=== PATIENT | male | born 1960 | race Caucasian/White ===

== ENCOUNTER 2018-11-25 09:58 | Inpatient (IN) ==
--- NOTE | 2018-11-11 16:09 | PAT Medication Instructions ---
Medication Instructions Date of Service November 11, 2018 Home Medications calcium carbonate-vitamin D3 [Calcium 500 + D] 1 tab PO QPM ibuprofen 400 mg PO QID PRN lisinopril 10 mg PO QAM multivitamin 1 tab PO QPM ASK your surgeon for instructions ibuprofen 400 mg PO QID PRN DO NOT take the morning of surgery lisinopril 10 mg PO QAM Take evening before surgery calcium carbonate-vitamin D3 [Calcium 500 + D] 1 tab PO QPM multivitamin 1 tab PO QPM Other Notes If you have any questions please call us at [phone] or [phone] or [phone] or [phone]
--- NOTE | 2018-11-12 10:07 | Anesthesiology Consultation ---
Date of Service November 12, 2018 Assessment & Plan (1) Encounter for pre-operative examination: Chart Review Chart Review: Pending: Refer to Additional Notes / Consult section (pending preop testing (labs, EKG, CXR)) and Patient seen in Pre Admission Testing Teaching & Discussion Pre-Anesthesia Teaching/Discussion Notes: Instructed NPO after midnight before surgery,except medications with 15 cc of water. Medication instructions prov ided according to the PAT guidelines. History Surgery Operation Date: 11/25/18 12:45 Proposed Procedures p L3-L4 Transforaminal Lumbar Interbody Fusion, - Gage Oconnell DO s L4-L5 Hardware Removal with Spinal Cord Monitoring - Gage Oconnell DO Height/Weight Height: 6 ft Weight: 119.3 kg Allergies Allergy/AdvReac Type Severity Reaction Status Date / Time No Known Allergies Allergy Unknown Verified 11/06/18 11:33 Medications Home Medications Medication Instructions Recorded Confirmed Last Taken calcium carbonate-vitamin D3 1 tab PO QPM 11/06/18 11/06/18 Unknown [Calcium 500 + D] ibuprofen 400 mg PO QID PRN 11/06/18 11/06/18 Unknown lisinopril 10 mg PO QAM 11/06/18 11/06/18 Unknown multivitamin 1 tab PO QPM 11/06/18 11/06/18 Unknown Past Medical History Medical History Arthritis History of blood transfusion post-op Hypertension Kidney stones Obesity Sleep apnea CPAP Exercise / Class Metabolic Activity II 4-5 Yardwork/Stairs/Walk up hill Past Surgical History Surgical History Fusion of spine X 2-LOWER BACK AND NECK H/O cystoscopy FOR KIDNEY STONES H/O sinus surgery X MULTIPLE History of herniorrhaphy Past Anesthesia History No Hx of Anesthesia Complications (except PONV x 1 ) and No Family Hx of Anesthesia Complications History of PONV History of PONV (x1 episode) Social History Smoking Status: Former smoker Do You Dip or Chew Tobacco: No Smoking End Date: QUIT 21 YRS AGO Hx Alcohol Use: Yes Alcohol type: beer alcohol intake frequency: a few times a month Hx Substance Use: No Review of Systems Patient denies chest pain, shortness of breath, dyspnea on exertion, reflux, cough, wheezing, palpitations. Physical Exam Vital Signs VITALS BP 119/72 P 65 TEMP 98.3 SP02 93%RA RESP 16 PHYSICAL Full neck and c-spine range of motion. Full TMJ range of motion. TMD 3 finger breaths Mallampati Score 2 Dentition: full upper/lower dentures; edentulous Lungs: clear throughout to auscultation Cardiac: regular rate and rhythm, no murmurs noted Spine: normal Carotid arteries: negative bruit Extremities: no edema
--- NOTE | 2018-11-12 11:09 | XRay Report ---
TWO VIEW CHEST CLINICAL HISTORY: Preoperative examination. FINDINGS: PA and lateral chest radiographs are compared to study dated 11/22/2008. The heart is top no rmal for projection. The pulmonary vasculature is noncongested. The lungs appear hyperinflated. Chron ic interstitial thickening is similar to previous. There is mild bibasilar atelectasis. No airspace c onsolidation or pleural effusion is identified. There are scattered calcified granulomas. There is no pneumothorax. The skeletal structures are osteopenic. The bony thorax appears intact. Degenerative c hanges noted in the shoulders and thoracic spine. Fusion hardware is seen in the lower cervical spine . IMPRESSION: No active disease in the chest. Electronically signed by: Aftab Doran M.D. 11/12/2018 11:08 AM
[2018-11-12 11:18] LABS: Basophils # (auto) 0.02 K/uL (0-0.2); Basophils % (auto) 0.4 %; Eosinophils % (auto) 1.9 %; Hemoglobin 14.7 g/dL (14.0-18.0); Immature Granulocytes # (auto) 0.01 K/uL (0.00-0.02); Immature Granulocytes % (auto) 0.2 %; Lymphocytes # (auto) 1.68 K/uL (1.2-3.4); Lymphocytes % (auto) 32.1 %; Mean Corpuscular Hemoglobin 32.7 pg (25-34); Mean Corpuscular Volume 93.3 fL (80-100); Mean Platelet Volume 9.8 fL (7.4-10.4); Monocytes # (auto) 0.47 K/uL (0.11-0.59); Neutrophils # (auto) 2.95 K/uL (1.4-6.5); Neutrophils % (auto) 56.4 %; Platelet Count 222 K/uL (130-400); RDW Coefficient of Variation 12.7 % (11.5-14.5); RDW Standard Deviation 43.1 fL (36.4-46.3); White Blood Count 5.23 K/uL (4.8-10.8)
[2018-11-12 11:26] LABS: BUN Creatinine Ratio 27.1 (10-20); Calcium 9.3 mg/dl (8.5-10.1); Creatinine Clr Calc Pharmacy 147.3 ml/min; Est GFR (African American) 118.3; Est GFR (Non-African American) 102.1; Potassium 4.5 mmol/L (3.5-5.1)
[2018-11-12 12:12] LABS: Appearance Urine Cloudy (Clear); Bacteria Urine Automated Negative (Negative); Bilirubin Urine Negative (Negative); Blood Urine 2+ (Negative); Color Urine Yellow; Glucose Urine UA Negative (Negative); Ketones Urine Negative (Negative); Leukocyte Esterase Urine Negative (Negative); Nitrite Urine Negative (Negative); Protein Urine Negative (Negative); RBC Urine Automated >30 /hpf (0-4); Specific Gravity Urine 1.017 (1.000-1.030); Urobilinogen Urine Negative (Negative)
[~2018-11-25 09:58] MED LIST: ACETAMINOPHEN 500 MG TAB PO SCH; CEFAZOLIN 2000MG 2,000 MG/15 ML SYR IV SCH; CeleBREX 200 MG CAP PO SCH; GABAPENTIN 600 MG DOSE PO SCH; LR 15ML/HR IV SCH
[2018-11-25] MEDS ORDERED: ePHEDrine sulfate 50 MG/ML AMP IV PRN (10:54)
[2018-11-25] MEDS ORDERED: ATROPINE SULFATE 0.1 MG/ML 10ML SYR IV PRN (10:54)
[2018-11-25] MEDS ORDERED: ONDANSETRON INJ 2 MG/ML 2 ML VIAL IV PRN ×2 (10:54→16:32)
[2018-11-25] MEDS ORDERED: fentaNYL citrate 100 MCG/2 ML VIAL IV PRN (10:54)
[2018-11-25] MEDS ORDERED: MIDAZOLAM HCL 1 MG/ML 2ML VIAL ONE (11:38)
[2018-11-25] MEDS ORDERED: fentaNYL citrate 100 MCG/2 ML VIAL ONE ×5 (11:38→13:58)
[2018-11-25] MEDS ORDERED: NEOSTIGMINE METHYLSULFATE 1 MG/ML 10ML VIAL ONE (11:43)
[2018-11-25] MEDS ORDERED: ROCURONIUM BROMIDE 10 MG/ML 5 ML VIAL ONE (11:43)
[2018-11-25] MEDS ORDERED: GLYCOPYRROLATE 0.2 MG/ML VIAL ONE (11:43)
[2018-11-25] MEDS ORDERED: PROPOFOL IV EMULSION 10 MG/ML 20 ML VIAL IV ONE (11:43)
[2018-11-25] MEDS ORDERED: DEXAMETHASONE SOD INJ 4 MG/ML VIAL ONE (11:43)
[2018-11-25] MEDS ORDERED: ONDANSETRON INJ 2 MG/ML 2 ML VIAL ONE (11:43)
[2018-11-25] MEDS ORDERED: LIDOCAINE HCL 2% 2 ML VIAL/AMP(20MG/ML) INFIL ONE (11:43)
--- NOTE | 2018-11-25 11:49 | History & Physical Bridge Note ---
Date of Service November 25, 2018 History & Physical Bridge Note I have examined the patient, reviewed the History & Physical and in the interval since the performance of the History & Physical I have noted the following changes of clinical significance: no changes noted
--- NOTE | 2018-11-25 11:50 | History & Physical Report ---
Date of Service November 25, 2018 Assessment & Plan (1) Spinal stenosis, lumbar region with neurogenic claudication: Transforaminal lumbar interbody fusion L3-L4 with hardware removal L4-L5 Present on Admission?: Yes History of Present Illness Chief Complaint: Back and leg pain Primary Care Provider: Alejandra Mendez This is a 58-year-old male well-known to me that presents with chronic persistent back and leg pain. After failing extensive course of nonoperative care is here for surgical intervention. Allergies Allergy/AdvReac Type Severity Reaction Status Date / Time No Known Allergies Allergy Unknown Verified 11/06/18 11:33 Home Medications Home Medications Medication Instructions Recorded Confirmed Type calcium carbonate-vitamin D3 1 tab PO QPM 11/06/18 11/25/18 History [Calcium 500 + D] ibuprofen 400 mg PO QID PRN 11/06/18 11/25/18 History lisinopril 10 mg PO QAM 11/06/18 11/25/18 History multivitamin 1 tab PO QPM 11/06/18 11/25/18 History Past Med/Surg History Medical History Vasectomy planned (Acute) Arthritis Hypertension Kidney stones Sleep apnea CPAP History of blood transfusion post-op Obesity Surgical History Fusion of spine X 2-LOWER BACK AND NECK H/O cystoscopy FOR KIDNEY STONES H/O sinus surgery X MULTIPLE History of herniorrhaphy Social History Preferred Language: Upper Sorbian Communication Ability: Effective Timber Trimmer Required: No Beliefs That Will Affect Care: None Current Living Situation: Significant Other Other Information That Helps Us Care for You: No Feels Safe at Home: Yes Safety Concerns: Feels Safe At This Time Smoking Status: Former smoker Do You Dip or Chew Tobacco: No ; Smoking End Date: QUIT 21 YRS AGO ; Second Hand Exposure: Yes (TARA SMOKES) ; Hx Alcohol Use: Yes Alcohol type: beer Hx Substance Use: No Physical Exam Physical Exam: Patient is alert and oriented neurologically intact. Results & Data Vital Signs (Past 12 Hours) Vital Signs Temp Pulse Resp BP Pulse Ox 11/25/18 10:31 36.8 C 70 22 126/76 94
[2018-11-25] MEDS ORDERED: BACITRACIN INJ 50,000 UNIT VIAL ONE (12:11)
[2018-11-25] MEDS ORDERED: BUPIVACAINE/EPINEPHRINE 0.5% MPF 1:200,000 30 ML VIAL ONE (12:11)
[2018-11-25] MEDS ORDERED: HYDROmorphone INJ 2 MG/ML SYR/VIAL ONE (12:14)
[2018-11-25] MEDS ORDERED: ePHEDrine sulfate 50 MG/ML SYR ONE (13:06)
[2018-11-25] MEDS ORDERED: FLOSEAL HEMOSTATIC MATRIX 10ML TOP ONE (14:27)
--- NOTE | 2018-11-25 14:37 | Operative Report ---
Post Operative Report Pre & Post Diagnosis Operation Date: 11/25/18 11:55 Pre-Op Diagnosis: Spinal stenosis, lumbar region with neurogenic claudication Post-Op Diagnosis: Spinal stenosis, lumbar region with neurogenic claudication Procedure Operation Date: 11/25/18 11:55 Actual Procedures #1 removal of posterior instrumentation L4-5. #2 expiration of fusion L4-5. #3 lumbar decompression with bilateral medial facetectomies and foraminotomies L2-3 L3-4. #4 posterior spinal fusion L3-4. #5 placement posterior instrumentation L3-4 per #6 interbody fusion L3-4. #7 placement of peek cage 13 x 26 mm at L5 4. #8 placement of local autograft in the posterior lateral gutters per #9 placement infuse collagen sponge, master graft in the posterior lateral gutters ostial amp and interbody space. Surgeon Gage Oconnell, Manager Finance Kasie Bear Estimated Blood Loss 750 Findings See Below Patient is 6 foot tall weighing over 118 kg with a BMI in excess of 35. This combined with an EBL of 750 cc created significant technical difficulty throughout the procedure at at least 50% increase in operative time. Required her deepest retractors and longest instruments to perform the procedure. Specimens None Indications This is a 58-year-old male well-known to the presents with the above-mentioned diagnosis after failing extensive course of nonoperative care like to undergo the above-mentioned procedure. Description of Procedure Patient was met with identified and informed consent obtained. Patient was then taken to the operative suite underwent intubation placed in the prone position the Jd table on top of the Darwin frame. All bony prominences well-padded eyes inspected to ensure no external pressure placed upon the peer at this point the lumbar spine was prepped and draped in normal sterile fashion. Sharp dissection with the assistance of Bovie cautery was performed down to and exposing the lamina and transverse processes of L3 and instrumentation at L4 and L5 bilaterally. Then proceed remove the hardware bilaterally at L4 and L5 explored the fusion mass noting it to be intact. Then performed a complete laminectomy of L3 partial laminectomy of L2 including bilateral medial facetectomies and foraminotomies addressing severe spinal stenosis. Pedicle screws were then placed in L3 and L4 bilaterally with assistance of fluoroscopy the purposes whitney placed. By way of a transforaminal approach on the right complete discectomy was performed endplates curetted to subcortical bleeding bone and a 13 x 26 mm peek cage filled with ostium bone graft was tapped into position. The rods were then locked in final position bilaterally. The transverse processes of L3 and L4 burred to subcortical bleeding bone. Infuse collagen sponge master graft local autograft placed in the posterior lateral gutters. 15 round KRISTINA drain inserted. The incision was then closed with 1 Vicryl in the fascia 2-0 Vicryl substantially and 4 Monocryl for final skin closure. Steri-Strip sterile dressings placed. Patient will continue PACU stable condition. Please note Kasie Bear present throughout the entire procedure involved the patient positioning complex portions of the surgery and final skin closure. Lastly spinal cord monitoring was utilized that the proce dure and no changes noted. I attest to the content of the Intraoperative Record and any orders documented therein. Any exceptions are noted below.
[2018-11-25 14:38] LABS: Hematocrit (blood only) 36.1 % (42-52)
[2018-11-25] MEDS ORDERED: KETOROLAC 30 MG/ML VIAL ONE (14:43)
[2018-11-25] MEDS ORDERED: VOLUVEN IN NSS IV ONE (14:43)
--- NOTE | 2018-11-25 14:53 | Fluoroscopy Report ---
INTRAOPERATIVE RADIOGRAPHS CLINICAL HISTORY: Hardware removal. L3-L5 spinal fusion. Fluoroscopy time: 9 seconds. FINDINGS: 2 spot fluoroscopic views of the lumbar spine are presented. There has been discectomy at L 3-L4 and L4-L5 with laminectomy and posterior fusion. Interpedicular screws are present at L3-L4. The orthopedic hardware appears intact. IMPRESSION: Intraoperative images from lumbar spinal fusion as above. Electronically signed by: Aftab Doran M.D. 11/25/2018 2:52 PM
--- NOTE | 2018-11-25 15:47 | Anesthesiology Progress Note ---
Date of Service November 25, 2018 Anesthesia Post Procedure Vital Signs Vital Signs: Temp Pulse Pulse Resp BP Pulse Ox 11/25/18 15:30 71 14 143/83 H 95 11/25/18 15:20 70 12 136/80 97 11/25/18 15:10 71 12 141/80 H 99 11/25/18 15:00 75 12 148/88 H 97 11/25/18 14:54 36.2 C L 81 12 136/98 93 11/25/18 10:31 36.8 C 70 22 126/76 94 Pain Intensity Lower Back: Pain Intensity: 3 Transfer of Care Handoff Completed per policy Notes Mental Status: alert / awake / arousable Patient Amnestic to Procedure: Yes Nausea / Vomiting: adequately controlled Pain: adequately controlled Airway Patency, RR, SpO2: stable & adequate BP & HR: stable & adequate Hydration State: stable & adequate Anesthetic Complications: no major complications apparent Notes: pt c/o OS gritty ,painful sensation w/o visual acuity changes. I cannot discern any obvious injury upon examination. I will order erythromycin ophthalmic ointment TID x 5 days. Will start constantino. I have discussed this with him and he understands.
[2018-11-25] MEDS: ERYTHROMYCIN OP OINT 5 MG/GM 3.5 GM TUBE OPL SCH ×2 (16:04→20:48)
[2018-11-25] MEDS ORDERED: DO NOT ADMINISTER FLU VACCINE PRN (16:32)
[2018-11-25] MEDS ORDERED: METOCLOPRAMIDE HCL INJ 5 MG/ML 2 ML VIAL IV PRN (16:32)
[2018-11-25] MEDS ORDERED: ALUMINUM/MAGNESIUM SUSP 30 ML UDC PO PRN (16:32)
[2018-11-25] MEDS ORDERED: bisacodyL 10 MG SUPP PR PRN (16:32)
[2018-11-25] MEDS ORDERED: NALOXONE HCL 0.4 MG/1 ML VIAL/CARP IV PRN (16:32)
[2018-11-25] MEDS ORDERED: ONDANSETRON 4 MG TAB PO PRN (16:32)
[2018-11-25] MEDS ORDERED: LORazepam 0.5 MG TAB PO PRN (16:32)
[2018-11-25] MEDS ORDERED: LORazepam 0.5 MG/1 ML VIAL IV PRN (16:32)
[2018-11-25] MEDS ORDERED: SOD PHOSPHATE/SOD BIPHOSPHATE ENEMA 132 ML BTL PR PRN (16:32)
[2018-11-25] MEDS ORDERED: HYDROmorphone INJ 0.5 MG/0.5 ML SYR IV PRN (16:32)
[2018-11-25] MEDS ORDERED: PROMETHAZINE HCL 12.5 MG in SODIUM CHLORIDE 0.9% 50 ML IV PRN (16:32)
[2018-11-25] MEDS ORDERED: ACETAMINOPHEN 1,000 MG/100 ML VIAL IV PRN (16:32)
[2018-11-25] MEDS ORDERED: ACETAMINOPHEN 500 MG TAB PO PRN (16:32)
[2018-11-25] MEDS ORDERED: OXYCODONE HCL IR 5 MG TAB (IMMEDIATE RELEASE) PO PRN (16:32)
[2018-11-25] MEDS ORDERED: MAGNESIUM HYDROXIDE SUSP 30 ML UDC PO PRN (16:32)
[2018-11-25] MEDS ORDERED: DO NOT ADMINISTER PNEUMOCOCCAL VACCINE PRN (16:32)
[2018-11-25] MEDS ORDERED: FAMOTIDINE 20 MG TAB PO PRN (16:32)
[2018-11-25] MEDS ORDERED: OXYCODONE HCL IR 5 MG TAB (IMMEDIATE RELEASE) ONE (16:39)
[2018-11-25] MEDS: CEFAZOLIN 2000MG 2,000 MG/15 ML SYR IV SCH (20:47)
[2018-11-25] MEDS: CALCIUM 600MG + VIT D 400 IU TAB PO SCH (20:47)
[2018-11-25] MEDS: MULTIVITAMIN TAB PO SCH (20:47)
[2018-11-25] MEDS: DOCUSATE SODIUM/SENNA 50/8.6MG TAB PO SCH (20:47)
[2018-11-25] MEDS: LACTATED RINGER'S 1,000 ML IV SCH (20:48)
[2018-11-26] MEDS: LACTATED RINGER'S 1,000 ML IV SCH (00:07)
[2018-11-26] MEDS: KETOROLAC 30 MG/ML VIAL IV SCH ×4 (00:07→18:04)
[2018-11-26] MEDS: POLYETHYLENE (MIRALAX) 17 GM PACK PO SCH ×4 (05:10→23:51)
[2018-11-26] MEDS: CEFAZOLIN 2000MG 2,000 MG/15 ML SYR IV SCH (05:10)
[2018-11-26 06:44] LABS: Basophils # (auto) 0.01 K/uL (0-0.2); Basophils % (auto) 0.1 %; Eosinophils # (auto) 0.04 K/uL (0-0.5); Eosinophils % (auto) 0.4 %; Hematocrit (blood only) 32.6 % (42-52); Hemoglobin 11.5 g/dL (14.0-18.0); Immature Granulocytes # (auto) 0.03 K/uL (0.00-0.02); Immature Granulocytes % (auto) 0.3 %; Lymphocytes # (auto) 1.15 K/uL (1.2-3.4); Lymphocytes % (auto) 11.2 %; Mean Corpuscular Hemoglobin 32.3 pg (25-34); Mean Corpuscular Hgb Conc 35.3 g/dL (32-36); Mean Corpuscular Volume 91.6 fL (80-100); Mean Platelet Volume 9.3 fL (7.4-10.4); Monocytes # (auto) 0.95 K/uL (0.11-0.59); Monocytes % (auto) 9.3 %; Neutrophils # (auto) 8.09 K/uL (1.4-6.5); Neutrophils % (auto) 78.7 %; Platelet Count 178 K/uL (130-400); RDW Coefficient of Variation 12.7 % (11.5-14.5); RDW Standard Deviation 42.7 fL (36.4-46.3); Red Blood Count 3.56 M/uL (4.7-6.1); White Blood Count 10.27 K/uL (4.8-10.8)
[2018-11-26 07:16] LABS: BUN Creatinine Ratio 30.7 (10-20); Calcium 8.8 mg/dl (8.5-10.1); Creatinine Clr Calc Pharmacy 132.2 ml/min; Est GFR (African American) 113.3; Est GFR (Non-African American) 97.8; Potassium 4.2 mmol/L (3.5-5.1)
--- NOTE | 2018-11-26 08:25 | Anesthesiology Progress Note ---
Date of Service November 26, 2018 Anesthesia Post Procedure Vital Signs Vital Signs: Temp Pulse Pulse Pulse Pulse Resp BP 11/26/18 07:13 36.9 C 64 16 11/26/18 03:22 36.5 C 73 16 11/25/18 23:12 36.6 C 73 16 111/72 11/25/18 19:22 36.4 C L 68 17 113/62 11/25/18 18:39 36.5 C 57 L 16 91/55 L 11/25/18 17:43 36.9 C 83 17 149/88 H 11/25/18 16:50 36.8 C 73 17 130/81 11/25/18 16:20 37 C 75 16 134/79 11/25/18 16:05 65 12 149/83 H 11/25/18 15:50 36.4 C L 76 12 138/77 11/25/18 15:40 68 12 138/82 11/25/18 15:30 71 14 143/83 H 11/25/18 15:20 70 12 136/80 11/25/18 15:10 71 12 141/80 H 11/25/18 15:00 75 12 148/88 H 11/25/18 14:54 36.2 C L 81 12 136/98 11/25/18 10:31 36.8 C 70 22 126/76 BP Pulse Ox 11/26/18 07:13 107/64 96 11/26/18 03:22 110/67 97 11/25/18 23:12 95 11/25/18 19:22 97 11/25/18 18:39 93 11/25/18 17:43 97 11/25/18 16:50 97 11/25/18 16:20 94 11/25/18 16:05 97 11/25/18 15:50 96 11/25/18 15:40 95 11/25/18 15:30 95 11/25/18 15:20 97 11/25/18 15:10 99 11/25/18 15:00 97 11/25/18 14:54 93 11/25/18 10:31 94 Pain Intensity Lower Back: Pain Intensity: 1 Notes Mental Status: alert / awake / arousable and participated in evaluation Patient Amnestic to Procedure: Yes Nausea / Vomiting: adequately controlled Pain: adequately controlled Airway Patency, RR, SpO2: stable & adequate BP & HR: stable & adequate Hydration State: stable & adequate Anesthetic Complications: no major complications apparent
[2018-11-26] MEDS: ERYTHROMYCIN OP OINT 5 MG/GM 3.5 GM TUBE OPL SCH ×3 (08:41→23:51)
[2018-11-26] MEDS: lisinopriL 10 MG TAB PO SCH (08:44)
[2018-11-26] MEDS: TRAMADOL HCL 50 MG TABLET PO PRN ×2 (12:46→23:51)
--- NOTE | 2018-11-26 13:02 | Orthopedic Progress Note ---
Date of Service November 26, 2018 Assessment & Plan (1) Spinal stenosis, lumbar region with neurogenic claudication: At this time will initiate physical therapy monitor KRISTINA output anticipate discharge home this weekend. Present on Admission?: Yes Subjective Back pain is controlled leg symptoms improved. Physical Exam Physical Exam: Patient is in the chair at the bedside. Is good strength testing. Results & Data Vital Signs (Past 12 Hours) Vital Signs Temp Pulse Pulse Resp BP Pulse Ox 11/26/18 11:35 36.8 C 75 16 124/71 99 11/26/18 07:13 36.9 C 64 16 107/64 96 11/26/18 03:22 36.5 C 73 16 110/67 97
[2018-11-26] MEDS: MULTIVITAMIN TAB PO SCH (22:03)
[2018-11-26] MEDS: CALCIUM 600MG + VIT D 400 IU TAB PO SCH (22:03)
[2018-11-26] MEDS: DOCUSATE SODIUM/SENNA 50/8.6MG TAB PO SCH (22:03)
[2018-11-27] MEDS: POLYETHYLENE (MIRALAX) 17 GM PACK PO SCH ×4 (05:16→23:27)
[2018-11-27] MEDS: TRAMADOL HCL 50 MG TABLET PO PRN ×2 (05:40→18:26)
[2018-11-27] MEDS: ERYTHROMYCIN OP OINT 5 MG/GM 3.5 GM TUBE OPL SCH ×3 (08:28→20:49)
[2018-11-27] MEDS: lisinopriL 10 MG TAB PO SCH (08:28)
--- NOTE | 2018-11-27 08:36 | Urology Consultation ---
Date of Consultation November 27, 2018 Assessment & Plan (1) Gross hematuria: 58yo M with gross hematuria s/p extensive lumbar surgery, hx of stones. We discussed options moving forward including possible KUB vs CT scan to assess for stones. Given his stability, we agreed to continue to monitor for flank pain upon discharge. No signs of acute stone passage today. He is established with [facility] and plans to followup with them post operatively. Okay to d/c scott from our perspective. No acute intervention indicated at this time. Thank you for allowing us to participate in the acute care of Mr. Roa. Please reconsult us with additional questions, concerns or changes in patient status. History of Present Illness Reason for Consultation: hematuria Requesting Physician: Dr. Oconnell Attending Physician: Gage Oconnell, History of Present Illness Mr. Roa is a pleasant 58yo M POD #2 s/p L3-L4 Transforaminal Lumbar Interbody Fusion and L4-5 hardware removal with a hx of kidney stones with post operative hematuria. Per nursing pt experienced neri red urine x2 days post operatively, now draining adequate amounts of clear yellow. Patient has hx of kidney stones, established with Dr. Keane with [facility]. He reports annual checkups with CT scans and hx of ureteroscopy. Most recently checked 2-3 months ago. Symptomatic stone pain is hard to assess given his recent extensive lumbar surgery, however pt is continuing to improve. He states his stone are hard to visualize on KUB. Sitting up in chair this AM, does not appear to be in acute distress. No nausea/vomiting, fever/chills. H/H as expected post operatively, no leukocytosis and Cr WNL. Allergies Allergy/AdvReac Type Severity Reaction Status Date / Time No Known Allergies Allergy Unknown Verified 11/06/18 11:33 Home Medications Home Medications Medication Instructions Recorded Confirmed Type calcium carbonate-vitamin D3 1 tab PO QPM 11/06/18 11/25/18 History [Calcium 500 + D] ibuprofen 400 mg PO QID PRN 11/06/18 11/25/18 History lisinopril 10 mg PO QAM 11/06/18 11/25/18 History multivitamin 1 tab PO QPM 11/06/18 11/25/18 History oxycodone 5 mg PO Q4H PRN #30 tab 11/26/18 Rx tramadol 50 mg PO Q4H PRN #30 tab 11/26/18 Rx Patient History Medical History Vasectomy planned (Acute) Arthritis Hypertension Kidney stones Sleep apnea CPAP History of blood transfusion post-op Obesity Surgical History Fusion of spine X 2-LOWER BACK AND NECK H/O cystoscopy FOR KIDNEY STONES H/O sinus surgery X MULTIPLE History of herniorrhaphy Social History Preferred Language: Venezuelan Communication Ability: Effective 3D Specialist Required: No Beliefs That Will Affect Care: None marital status: Life Partner Current Living Situation: Significant Other Other Information That Helps Us Care for You: No Feels Safe at Home: Yes Safety Concerns: Feels Safe At This Time Smoking Status: Former smoker Do You Dip or Chew Tobacco: No ; Smoking End Date: QUIT 21 YRS AGO ; Second Hand Exposure: Yes (TARA SMOKES) ; Hx Alcohol Use: Yes Alcohol type: beer Hx Substance Use: No Review of Systems Review of Systems: All systems reviewed & are unremarkable except as noted in HPI & below Physical Exam Constitutional: no acute distress and not ill appearing Eyes: no nystagmus ENMT: Ears: no hearing impairment Neck: trachea midline Respiratory: no respiratory distress and no cough Cardiovascular: Vessels: no JVD Chest (Breasts): Chest: normal inspection of chest Gastrointestinal (Abdomen): Inspection/Auscultation: abdomen not distended and no abdominal edema Percussion/Palpation: abdomen soft; abdomen nontender Musculoskeletal: Head/Neck/Chest: normocephalic and head atraumatic Skin: no rashes, warm and dry Neurologic: awake; not confused and not obtunded Psychiatric: Orientation: alert and oriented x 3 Eye Contact: good eye contact Affect: no depressed affect Genitourinary: bladder normal to inspection; no CVA tenderness scott draining clear yellow Lymphatic: no lymphadenopathy and no lymphedema Results & Data Vital Signs (Past 12 Hours) Vital Signs Temp Pulse Pulse Resp BP BP Pulse Ox 11/27/18 07:20 37.3 C 86 18 146/83 H 90 11/26/18 23:18 37.0 C 77 16 112/64 94 PG Care Time/CCT Total # of Minutes Spent Total Time Spent with Patient: Total time spent is greater than 50% in coordination of care (as documented) at patient's floor/unit and/or counseling patient:
--- NOTE | 2018-11-27 13:37 | Orthopedic Progress Note ---
Date of Service November 27, 2018 Assessment & Plan (1) Spinal stenosis, lumbar region with neurogenic claudication: This time we will continue physical therapy monitor KRISTINA output anticipate discharge home tomorrow. Present on Admission?: Yes Subjective Back pain controlled leg pain markedly improved. Physical Exam Physical Exam: Patient is sitting the bedside chair. Is good strength testing. Appears comfortable. Results & Data Vital Signs (Past 12 Hours) Vital Signs Temp Pulse Resp BP Pulse Ox 11/27/18 07:20 37.3 C 86 18 146/83 H 90
[2018-11-27] MEDS: DOCUSATE SODIUM/SENNA 50/8.6MG TAB PO SCH (20:48)
[2018-11-27] MEDS: CALCIUM 600MG + VIT D 400 IU TAB PO SCH (20:48)
[2018-11-27] MEDS: MULTIVITAMIN TAB PO SCH (20:48)
[2018-11-28] MEDS: TRAMADOL HCL 50 MG TABLET PO PRN ×2 (05:29→11:33)
[2018-11-28] MEDS: POLYETHYLENE (MIRALAX) 17 GM PACK PO SCH (05:29)
[2018-11-28] MEDS: lisinopriL 10 MG TAB PO SCH (08:39)
[2018-11-28] MEDS: ERYTHROMYCIN OP OINT 5 MG/GM 3.5 GM TUBE OPL SCH (08:39)
--- NOTE | 2018-11-28 10:05 | Discharge Summary ---
Date of Service November 28, 2018 Admission HPI Per Admitting Provider This is a 58-year-old male well-known to me that presents with chronic persistent back and leg pain. After failing extensive course of nonoperative care is here for surgical intervention. Principal Diagnosis Lumbar spinal stenosis with neurogenic claudication Discharge Data Allergies Allergy/AdvReac Type Severity Reaction Status Date / Time No Known Allergies Allergy Unknown Verified 11/06/18 11:33 Consultations 11/25/18 16:32 Consult Case Management - Discharge Planning Routine 11/26/18 14:43 Consult Urology Routine Procedures Performed Operation Date: 11/25/18 11:55 Actual Procedures p L3-L4 Transforaminal Lumbar Interbody Fusion, Spinal Cord Monitoring, Application of Bone Morphogenetic Protein and Allograft - Gage Oconnell DO s L4-L5 Hardware Removal - Gage Oconnell DO Ordered Studies 11/25/18 11:55 FL fluoroscopy <1hr Routine FL lumbar spine 2-3V Routine Hospital Course (1) Spinal stenosis, lumbar region with neurogenic claudication: Patient underwent lumbar decompression fusion tolerated as well as taken to orthopedic for postoperative. Postop day 1 he was up and ambulating progressed to postop day #2. Postop day 3 KRISTINA drain to reduce creased a ppropriately. Pain was well controlled. Neurologically intact. Subsequent discharge home. Discharge orders instructions from the chart for further review. Total Time Total Time Spent Total Time Spent (In Minutes): 20 minutes Discharge Plan Discharge Items Patient Disposition: Home - Self-Care Reason For Visit: Radiculopathy, Lumbar Region Discharge Diagnosis: ACTIVITY RECOMMENDATIONS: SELF CARE INSTRUCTIONS AFTER THORACIC/LUMBAR FUSIONS 1. You may walk to your tolerance. It is good exercise for your legs and back. Expect some back and intermittent leg aches and pains. 2. You may perform "counter-top" level activities (make a sandwich, jose with a project, etc.). 3. No bending or lifting of more than 10 pounds or back twisting of any nature (roll like a log when turning in bed). 4. You may ride in a car for 20-30 minutes at a time. No driving until after your first visit with your doctor. 5. Frequent changes of position and restricting sitting to 30 minutes at a time will help limit the amount of back spasms and stiffness you may experience. 6. You may discontinue the use of ambulatory aids (cane, crutches, etc.) once your strength and confidence allow. 7. You may winding machine operator the shower and let water strike your incision when you arrive home at least once daily. Do not take a tub bath, sit in a hot tub or go into a swimming pool until after your first recheck in the office. SPECIAL CARE INSTRUCTIONS: VERY IMPORTANT TO READ AND REVIEW A. Your surgical incision has been closed with a cosmetic suture under the skin that will dissolve in about 6 weeks. In 14 days, you can use a pair of clean scissors and cut the suture that is left outside of the skin at the ends of your incision. 1. The small skin tapes can be removed 7 days after surgery if they have not fallen off by that point. 2. You may keep the wound open to air as much as possible to promote healing after post-op day number 5 unless told otherwise by your doctor. 3. If you think the wound looks like it is becoming infected (redness or worsening drainage) and/or you are experiencing fever, chill or worsening back pain and muscle spasms, contact the office so that we may evaluate you as soon as possible. B. Complications are uncommon, but please contact us if you have any signs or symptoms of: 1. wound infection (fever higher than 102.5 degrees F, redness, separation of wound, drainage, or increasing pain from the incision) 2. blood clots in legs (pain, swelling, redness and warmth in legs) 3. urinary tract infection (fever higher than 102.5 degrees F, burning upon urination or increased frequency of urination) 4. nerve problems (inability to walk on your toes or heels, numbness, loss o f bowel or bladder control) 5. any other symptoms that concern you C. Please call the office at if you have any concerns or question s about your operation or recovery. D. No smoking! Smoking drastically decreases the chance of a solid fusion. E. Do not take any anti-inflammatory medications (Indocin, Advil, Motrin, Aspirin, Naprosyn, etc.) as these may inhibit the chance of a solid fusion. Tylenol is okay to take for pain. MANAGING PAIN AFTER SPINAL SURGERY 1. Narcotic medication is intended for short-term use and will be provided for surgical pain. Surgical pain usually lasts for a period of 4-6 weeks. Narcotic medication includes Percocet, Vicodin, Darvocet, Tylenol #3 or Lortab. 2. Longer-term pain is more appropriately treated with non-narcotic medication such as Tylenol ES. 3. Muscle spasm is not appropriately treated with narcotics. Muscle relaxers such as Soma, Flexeril or Skelaxin can be used along with Tylenol ES. 4. Remember that we all live with some "aches and pains". This is not unusual or uncommon after an injury or as we get older. a. Back pain is expected and may include muscle spasms for 4 to 6 weeks after surgery. The pain should gradually improve. If the pain worsens for no apparent reason, please contact the office. b. Intermittent leg pain may also be experienced and should not be concerned about unless it worsens for no apparent reason. If so, please contact the office. 5. We will provide appropriate medication within the normal guidelines of their prescribed use. We will also be very cautious and aware of potential abuse and extended duration of patients' medication needs. a. Pain medications are for your comfort and to assist with sleep and rest so that the tissue can heal. They are not provided in order to return to normal activity and should not be used through the day. To do so or worsening pain at night can result from ongoing tissue damage and development of tolerance to the prescribed medicine. 6. Please allow 2-3 days to process refills. Prescriptions will not be mailed but must be picked up at the office. FOLLOW UP VISIT: Keep your scheduled follow-up appointment. Any questions, please call the office at . Activity: Per Instructions section Non-emergency contact: Primary Care Provider Call non-emergency contact if: you have any medication questions Follow-up/Referrals: Alejandra Mendez D.O. [Primary Care Provider] - Diet: Regular Addtl Attending Provider Instructions: ACTIVITY RECOMMENDATIONS: SELF CARE INSTRUCTIONS AFTER THORACIC/LUMBAR FUSIONS 1. You may walk to your tolerance. It is good exercise for your legs and back. Expect some back and intermittent leg aches and pains. 2. You may perform "counter-top" level activities (make a sandwich, jose with a project, etc.). 3. No bending or lifting of more than 10 pounds or back twisting of any nature (roll like a log when turning in bed). 4. You may ride in a car for 20-30 minutes at a time. No driving until after your first visit with your doctor. 5. Frequent changes of position and restricting sitting to 30 minutes at a time will help limit the amount of back spasms and stiffness you may experience. 6. You may discontinue the use of ambulatory aids (cane, crutches, etc.) once your strength and confidence allow. 7. You may winding machine operator the shower and let water strike your incision when you arrive home at least once daily. Do not take a tub bath, sit in a hot tub or go into a swimming pool until after your first recheck in the office. SPECIAL CARE INSTRUCTIONS: VERY IMPORTANT TO READ AND REVIEW A. Your surgical incision has been closed with a cosmetic suture under the skin that will dissolve in about 6 weeks. In 14 days, you can use a pair of clean scissors and cut the suture that is left outside of the skin at the ends of your incision. 1. The small skin tapes can be removed 7 days after surgery if they have not fallen off by that point. 2. You may keep the wound open to air as much as possible to promote healing after post-op day number 5 unless told otherwise by your doctor. 3. If you think the wound looks like it is becoming infected (redness or worsening drainage) and/or you are experiencing fever, chill or worsening back pain and muscle spasms, contact the office so that we may evaluate you as soon as possible. B. Complications are uncommon, but please contact us if you have any signs or symptoms of: 1. wound infection (fever higher than 102.5 degrees F, redness, separation of wound, drainage, or increasing pain from the incision) 2. blood clots in legs (pain, swelling, redness and warmth in legs) 3. urinary tract infection (fever higher than 102.5 degrees F, burning upon urination or increased frequency of urination) 4. nerve problems (inability to walk on your toes or heels, numbness, loss of bowel or bladder control) 5. any other symptoms that concern you C. Please call the office at if you have any concerns or questions about your operation or recovery. D. No smoking! Smoking drastically decreases the chance of a solid fusion. E. Do not take any anti-inflammatory medications (Indocin, Advil, Motrin, Aspirin, Naprosyn, etc.) as these may inhibit the chance of a solid fusion. Tylenol is okay to take for pain. MANAGING PAIN AFTER SPINAL SURGERY 1. Narcotic medication is intended for short-term use and will be provided for surgical pain. Surgical pain usually lasts for a period of 4-6 weeks. Narcotic medication includes Percocet, Vicodin, Darvocet, Tylenol #3 or Lortab. 2. Longer-term pain is more appropriately treated with non-narcotic medication such as Tylenol ES. 3. Muscle spasm is not appropriately treated with narcotics. Muscle relaxers such as Soma, Flexeril or Skelaxin can be used along with Tylenol ES. 4. Remember that we all live with some "aches and pains". This is not unusual or uncommon after an injury or as we get older. a. Back pain is expected and may include muscle spasms for 4 to 6 weeks after surgery. The pain should gradually improve. If the pain worsens for no apparent reason, please contact the office. b. Intermittent leg pain may also be experienced and should not be concerned about unless it worsens for no apparent reason. If so, please contact the office. 5. We will provide appropriate medication within the normal guidelines of their prescribed use. We will also be very cautious and aware of potential abuse and extended duration of patients' medication needs. a. Pain medications are for your comfort and to assist with sleep and rest so that the tissue can heal. They are not provided in order to return to normal activity and should not be used through the day. To do so or worsening pain at night can result from ongoing tissue damage and d evelopment of tolerance to the prescribed medicine. 6. Please allow 2-3 days to process refills. Prescriptions will not be mailed but must be picked up at the office. FOLLOW UP VISIT: Keep your scheduled follow-up appointment. Any questions, please call the office at . Pending Studies at Discharge: No Stand-Alone Forms: [facility] and [facility] Order Prescriptions: New tramadol 50 mg Tablet 50 mg PO Q4H PRN (Reason: Pain, Moderate) Qty: 30 RF: 0 oxycodone 5 mg Tablet 5 mg PO Q4H PRN (Reason: Pain, Severe) Qty: 30 RF: 0 Continued multivitamin Tablet 1 tab PO QPM RF: 0 lisinopril 10 mg Tablet 10 mg PO QAM RF: 0 calcium carbonate-vitamin D3 [Calcium 500 + D] 500 mg(1,250mg) -200 unit Tablet 1 tab PO QPM RF: 0 ibuprofen 200 mg Capsule 400 mg PO QID PRN (Reason: Pain) RF: 0 Discharge Orders: Discharge Order (Routine); Ordered 11/28/18 Ordered By: Ggae Oconnell Admission Data Admit Date/Time: 11/25/18 14:40 Attending Provider: Gage Oconnell Admit Provider: Gage Oconnell Primary Care Provider: Alejandra Mendez Other Providers: Uli Baldwin
== END 2018-11-28 12:12 | disposition home or self-care (01) | DRG 455 ==
LOC: ASU 09:58 → 3E 14:40